=== PATIENT | female | born 1985 | race African-American/Black ===

== ENCOUNTER 2017-11-30 18:10 | Inpatient (IN) | payer OTHER ==
[~2017-11-30] VITALS: Ht 170.2 cm; Wt 70.3 kg
--- NOTE | ~2017-11-30 | HC ---
[facility] [place] [address] CONSULTATION Name: ALEENA DING Room #: 170-15 [facility] IN M.R.#: [id number] Admission: 11/30/17 Attend Phys: Jf Teixeira MD Discharge: 12/01/17 Date of : 89 Report #: [id number] THIS REPORT FOR: //name// CC: Jf Du REASON FOR CONSULTATION: I was asked to evaluate concerning recent travel to [facility] with gastroenteritis and paresthesias. HISTORY OF PRESENT ILLNESS: The patient was a 32-year-old with a history of Graves disease who has undergone ablation procedure, now on treatment with methimazole. One month ago, she traveled to [facility] to be with her fiance. She took mefloquine prophylaxis. While there, she had multiple mosquito bites. [place] well except for one day 11/18/2017 after eating a meal that was complete with an ice cream drink at the end. Developed nausea, vomiting and diarrhea that lasted less than 24 hours. Following this, she felt well. Then the following week on her return trip approximately 5 days later, she developed acute onset of nausea, vomiting and profuse diarrhea while on the plane. This lasted for 3 days upon return. No fever, chills or sweats. It did not improve and was seen 4 days ago at [facility] Emergency Room where she was placed on ciprofloxacin and metronidazole. Within 24 hours, her stools improved, although she became dizzy with symptoms of vertigo. On the day of her evaluation here, she developed paresthesias to her right upper and lower extremities. No headache. Nausea and vomiting had resolved. Her diarrhea had resolved. No rashes. No myalgias or arthralgias. She was seen in the Emergency Room and I discussed last evening with Emergency Room physician to hold her antibiotics. She has had no fever. Her paresthesias have nearly resolved. Her vertigo has resolved. ALLERGIES: TRAMADOL. MEDICATIONS: Methimazole, mefloquine, ciprofloxacin, metronidazole, all of which were on hold and oral control. PAST MEDICAL HISTORY: Graves disease. FAMILY HISTORY: Noncontributory. SOCIAL HISTORY: She born and raised in [place]. Nonsmoker, no significant alcohol intake, no HIV risk factors. She works as a nurse practitioner. REVIEW OF SYSTEMS: Noted above. PHYSICAL EXAMINATION: VITAL SIGNS: Afebrile, hemodynamically stable. GENERAL: She is alert and cooperative and pleasant, in no acute distress. HEENT: Unremarkable. [address] [address] CONSULTATION Name: ALEENA DING Room #: 170-15 [facility] IN [facility]#: [id number] Admission: 11/30/17 Attend Phys: Jf Teixeira MD Discharge: 12/01/17 Date of : 89 Report #: [id number] NEUROLOGIC: Normal. NECK: Supple, no thyromegaly, no adenopathy. CHEST: Clear. HEART: Regular. ABDOMEN: Soft and nontender. No hepatosplenomegaly or mass. LABORATORY STUDIES: Hemoglobin 11.3, WBC 5.2, platelet count 260,000. Sodium 136, potassium 3.4, creatinine 1. Liver function test normal. Urine test negative. Urinalysis unremarkable. Influenza antigen negative. Chest x-ray negative. CT head negative. Blood culture is negative to date. Stool cultures pending. IMPRESSION: 1. A 32-year-old with what I suspect is adverse drug reaction to ciprofloxacin, most likely. The patient had been on methimazole without complications previously, she has been on metronidazole in the past without issue, she has been on mefloquine for a month without issue. Therefore, suspect ciprofloxacin would be the most likely agent. It is also possible that the combination of all 4 drugs could be playing a role where they all have potential neurologic side effects. 2. Enteritis, improved suspecting bacterial etiology. 3. Graves' disease, undergoing therapy. RECOMMENDATIONS: We will avoid ciprofloxacin. Consider this adverse drug reaction to this drug. Still, it would be most reasonable for her to go with [facility] to complete her course of prophylaxis for 1 more week. We will also finish her treatment for her enteritis with azithromycin for 3 days. I would like her to contact her [employer] certified concierge regarding resuming the methimazole. I suspect it should be okay to continue this. She will follow up with her primary care physician first of next week if any further symptoms should continue. <ELECTRONICALLY SIGNED> By: Lucian Avery MD 12/02/17 [id number] Lucian Avery MD /nt
[2017-11-30 18:17] VITALS: BP 141/90
[2017-11-30 21:09] LABS: URINE BILIRUBIN NEGATIVE (Negative); URINE BLOOD NEGATIVE (Negative); URINE CLARITY CLEAR; URINE COLOR YELLOW; URINE GLUCOSE-RANDOM* NEGATIVE (Negative); URINE KETONES NEGATIVE (Negative); URINE LEUKOCYTES-REFLEX NEGATIVE (Negative); URINE NITRITE-REFLEX NEGATIVE (Negative); URINE PROTEIN (DIPSTICK) NEGATIVE (Negative); URINE UROBILINOGEN 0.2 E.U./dl (0.2-1.0)
[2017-11-30 21:18] LABS: HEMATOCRIT 33.8 % (37.0-47.0); HEMOGLOBIN 11.3 gm/dL (12.0-15.0); MCH 26.3 pg (26.0-34.0); MCHC 33.3 g/dL (28.0-37.0); RBC 4.29 mil/uL (4.20-5.00); RDW 17.8 % (10.5-14.5); WBC 5.2 thou/uL (4.0-11.0)
[2017-11-30 21:33] LABS: POTASSIUM 3.4 mmol/L (3.5-5.1)
[2017-11-30 21:38] LABS: ALBUMIN 2.8 g/dL (3.4-5.0); TOTAL BILIRUBIN 0.3 mg/dL (<0.1-1.0); TOTAL PROTEIN 6.2 g/dL (6.4-8.2)
[2017-11-30 21:48] VITALS: BP 132/87
[2017-12-01 01:21] VITALS: BP 123/58
[2017-12-01 09:28] VITALS: BP 146/73
[2017-12-01] MEDS ORDERED: AZITHROMYCIN 2250 MG PO (11:03)
[2017-12-01] MEDS ORDERED: MALARONE 250-11 EACH PO (11:03)
[2017-12-01 12:23] VITALS: BP 127/87
[2017-12-01 12:44] VITALS: BP 127/87
== END 2017-12-01 12:45 | disposition home or self-care (01) | DRG 392 ==
LOC: ER 18:10 → EROBS 21:48
PROVIDERS: Emergency Medicine
DX: K52.9 Noninfective gastroenteritis and colitis, unspecified (principal); R20.2 Paresthesia of skin; R53.81 Other malaise; E05.00 Thyrotoxicosis with diffuse goiter without thyrotoxic crisis or storm; E03.9 Hypothyroidism, unspecified; E87.6 Hypokalemia; T36.95XA Adverse effect of unspecified systemic antibiotic, initial encounter; Z88.8 Allergy status to other drugs, medicaments and biological substances

== ENCOUNTER 2017-12-08 14:06 | Emergency (ER) | payer OTHER ==
[~2017-12-08] VITALS: Ht 170.2 cm; Wt 69.0 kg
[~2017-12-08 14:06] MED LIST: AZITHROMYCIN 2250 MG PO; MALARONE 250-11 EACH PO
[2017-12-08] MEDS ORDERED: MALARONE 250-11 EACH PO (15:31)
== END 2017-12-08 18:01 | disposition home or self-care (01) ==
LOC: ER 14:06
DX: B54 Unspecified malaria (principal); E05.90 Thyrotoxicosis, unspecified without thyrotoxic crisis or storm; Z88.6 Allergy status to analgesic agent